=== PATIENT | female | born 1980 | race African-American/Black ===

== ENCOUNTER 2022-02-03 13:22 | Emergency (ER) | payer BC ==
[~2022-02-03] VITALS: Ht 167.6 cm; Wt 65.8 kg
== END 2022-02-03 14:08 | disposition home or self-care (01) ==
LOC: ER 13:22
DX: S60.455A Superficial foreign body of left ring finger, initial encounter (principal); X58.XXXA Exposure to other specified factors, initial encounter; Y93.9 Activity, unspecified; Y92.018 Other place in single-family (private) house as the place of occurrence of the external cause; Y99.9 Unspecified external cause status